=== PATIENT | male | born 1995 | race African-American/Black ===

== ENCOUNTER 2017-12-05 09:27 | Emergency (ER) | payer MEDICAID, OTHER ==
[~2017-12-05] VITALS: Ht 177.8 cm; Wt 68.0 kg
[2017-12-05] MEDS ORDERED: HYDROCODONE/ACETAMINOPHEN 5/325MG TABLET PO ONE (13:30)
[2017-12-05] MEDS ORDERED: LIDOCAINE HCL 1% 20ML VIAL (Pyxis) INJ MC ONE (13:30)
[2017-12-05] MEDS ORDERED: BACITRACIN ZINC OINT UDPKT TOP ONE (13:30)
[2017-12-05 17:13] VITALS: BP 125/68
== END 2017-12-05 17:14 | disposition home or self-care (01) ==
LOC: ER 10:48
DX: S62.201A Unspecified fracture of first metacarpal bone, right hand, initial encounter for closed fracture (principal); S81.811A Laceration without foreign body, right lower leg, initial encounter; X58.XXXA Exposure to other specified factors, initial encounter; Y93.89 Activity, other specified; Y99.8 Other external cause status; Y92.89 Other specified places as the place of occurrence of the external cause
CPT/HCPCS: 12002; 29125; 73090; 73130; 73590; 99284; J3490; Z7610

== ENCOUNTER 2022-09-26 12:48 | Emergency (ER) | payer MEDICARE, OTHER ==
[~2022-09-26] VITALS: Ht 180.3 cm; Wt 82.0 kg
[2022-09-26] MEDS ORDERED: ACETAMINOPHEN 325MG TABLET PO ONE (13:45)
[2022-09-26] MEDS ORDERED: IBUPROFEN 600MG TABLET PO ONE (13:45)
[2022-09-26 13:49] VITALS: BP 116/79
[2022-09-26] MEDS ORDERED: IBUP-2029 MT (15:29)
[2022-09-26] MEDS ORDERED: PENI500T MT (15:29)
[2022-09-26] MEDS ORDERED: PEN G BENZ/PEN G PROCAINE CR 1.2 MMU/2 ML IM ONE (15:30)
== END 2022-09-26 15:50 | disposition home or self-care (01) ==
LOC: ER 12:48
DX: J02.0 Streptococcal pharyngitis (principal)
CPT/HCPCS: 87430; 99283; J0558